=== PATIENT | female | born 1975 | race Caucasian/White ===

== ENCOUNTER 2024-01-11 11:03 | Outpatient (CLI) | payer BC | END 2024-01-11 11:04 | disposition home or self-care (01) | LOC: CSHMAMMO 11:03 | PROVIDERS: ATTEND Family Medicine | DX: Z13.820 Encounter for screening for osteoporosis (principal); N95.9 Unspecified menopausal and perimenopausal disorder; M85.89 Other specified disorders of bone density and structure, multiple sites | CPT/HCPCS: 77080 ==